=== PATIENT | female | born 1945 | race Caucasian/White ===

== ENCOUNTER 2016-07-25 13:05 | Observation (INO) | payer MEDICARE ==
[~2016-07-25] VITALS: Ht 154.9 cm; Wt 85.0 kg
[2016-07-25] VITALS (7 sets, daily range): BP systolic 126–181; BP diastolic 63–101; PULSE 64–90; RESP 16–18; TEMP 98–101.6; O2SAT 94–98
[~2016-07-25 13:05] MED LIST: CIPR500T4 PO; DICY1TAB26 PO; HYDR-3533 PO; LISI-587 PO; METR-1 PO
--- NOTE | 2016-07-25 13:12 | PD ---
Physical Exam Date Seen by Provider: July 25, 2016 Time Seen by Provider: 13:10 Narrative 71 yo female that presents to the ED for evaluation of abdominal cramping, nausea and vomiting after eating breakfast today. Vomited x 4. No diarrhea. No fevers. But complains of chills and sweats. No chest pain. No pain at this time. Ate some toast. Vitals sign stable. Patient awaiting bed placement. Data Data Last Documented VS Vital Signs Date Time Temp Pulse Resp B/P Pulse Ox O2 Delivery O2 Flow Rate FiO2 07/25/16 13:09 101.6 87 16 181/101 97 MDM Medical Record Reviewed: Yes Supervised Visit with SYD: No Dane Shukla July 25, 2016 13:11
[2016-07-25 14:03] LABS: AUTOMATED NEUTROPHIL # 7.2 TH/MM3 (1.8-7.7); BASOPHIL % 0.4 % (0.0-2.0); EOSINOPHIL % 0.1 % (0.0-4.0); HEMATOCRIT 41.4 % (35.0-46.0); HEMO FLAGS DIFF FINAL; LYMPH % 6.6 % (9.0-44.0); LYMPHOCYTE # 0.5 TH/MM3 (1.0-4.8); MEAN CELL VOLUME 84.4 FL (80.0-100.0); MEAN CORPUSCULAR HEMOGLOBIN 28.7 PG (27.0-34.0); MONO % 2.5 % (0.0-8.0); NEUT % 90.4 % (16.0-70.0); PLATELET COUNT 257 TH/MM3 (150-450); WHITE BLOOD COUNT 7.9 TH/MM3 (4.0-11.0)
[2016-07-25 14:06] LABS: BACTERIA, URINE RARE /hpf; BLOOD, URINE LARGE (NEG); COMMENT (UR) CULT NOT INDICATED; CULTURE IF INDICATED CULT NOT INDICATED; GLUCOSE,URINE NEG (NEG); KETONE, URINE NEG (NEG); NITRITE,URINE NEG (NEG); SQUAMOUS EPITHELIAL CELL URINE <1 /hpf (0-5); URINE COLOR LIGHT-YELLOW (YELLW/STRAW)
[2016-07-25 14:26] LABS: ALT (GPT) 43 U/L (10-53); ANION GAP 9 MEQ/L (5-15); AST (GOT) 52 U/L (15-37); BICARBONATE 26.7 MEQ/L (21.0-32.0); BLOOD UREA NITROGEN 11 MG/DL (7-18); CHLORIDE 104 MEQ/L (98-107); GLOMERULAR FILTRATION RATE 52 ML/MIN (>89); POTASSIUM 3.4 MEQ/L (3.5-5.1); SODIUM (NA) 140 MEQ/L (136-145)
[2016-07-25 14:31] LABS: ALKALINE PHOSPHATASE 67 U/L (45-117); TOTAL BILIRUBIN ADULT 0.4 MG/DL (0.2-1.0)
[2016-07-25] MEDS ORDERED: SODIUM CHLOR 0.9% 1000 ML INJ 1,000 ML IV SCH (14:54)
--- NOTE | 2016-07-25 14:59 | PD ---
HPI Chief Complaint: GI Complaint Time Seen by Provider: 14:35 Travel History International Travel<30 days: No Contact w/Intl Traveler<30days: No Traveled to known affect area: No History of Present Illness HPI Patient comes in for evaluation of nausea, vomiting, and diarrhea that occurred shortly after eating breakfast this morning. Patient states she had eggs and toast approximately an hour later she began feeling nauseous and had 4 episodes of vomiting that was nonbilious and nonbloody along with one episode of loose stool that was nonbloody. Patient denies any pain currently. States that after she vomited she felt much better. Patient states she did try to drink cranberry juice with lemon which she also vomited. Patient denies any chest pain, shortness of breath, fever, back pain, abdominal pain, or loss or change in bladder. Patient reports her history is hypertension, gout, and renal stones. States that she has had a cholecystectomy. PFSH Past Medical History Cardiovascular Problems: Yes (HTN) Cerebrovascular Accident: No Diminished Hearing: No Hypertension: Yes Kidney Stones: Yes Myocardial Infarction: No Menopausal: Yes Past Surgical History Section: Yes Cholecystectomy: Yes Gynecologic Surgery: Yes ( x3) Other Surgery: Yes Social History Alcohol Use: No Tobacco Use: No Substance Use: No Allergies-Medications (Allergen,Severity, Reaction): Coded Allergies: Bee Sting (Verified Allergy, Severe, 07/25/16) Reported Meds & Prescriptions Reported Meds & Active Scripts Active Review of Systems Except as stated in HPI: all other systems reviewed are Neg Physical Exam Narrative GENERAL: Well-developed, overly nourished, in no acute distress, and non-ill appearing. SKIN: Focused skin assessment warm and dry. HEAD: Atraumatic. Normocephalic. EYES: Pupils equal and round. EOMI. No scleral icterus. No injection or drainage. ENT: No nasal bleeding or discharge. Mucous membranes pink and moist. NECK: Trachea midline. Supple. No nuclear rigidity. CARDIOVASCULAR: Regular rate and rhythm. No murmur appreciated. RESPIRATORY: No accessory muscle use. No respiratory distress. Clear to auscultation. Breath sounds equal bilaterally. GASTROINTESTINAL: Abdomen soft, non-tender, nondistended. Hepatic and splenic margins not palpable. Normal bowel sounds 4. No pulsatile mass. MUSCULOSKELETAL: No obvious deformities. No clubbing. No cyanosis. No edema. Full range of motion. NEUROLOGICAL: Awake and alert. No obvious cranial nerve deficits. Motor grossly within normal limits. Normal speech. PSYCHIATRIC: Appropriate mood and affect; insight and judgment normal. Data Data Last Documented VS Vital Signs Date Time Temp Pulse Resp B/P Pulse Ox O2 Delivery O2 Flow Rate FiO2 07/25/16 14:59 95 Room Air 07/25/16 14:54 99.5 64 16 160/76 Orders Complete Blood Count With Diff (07/25/16 13:14) Comprehensive Metabolic Panel (07/25/16 13:14) Lipase (07/25/16 13:14) Urinalysis - C+S If Indicated (07/25/16 13:14) Electrocardiogram (07/25/16 13:14) Ct Abd/Pel W/O Iv Contrast (07/25/16 14:54) Iv Access Insert/Monitor (07/25/16 14:54) Ecg Monitoring (07/25/16 14:54) Oximetry (07/25/16 14:54) Ondansetron Inj (Zofran Inj) (07/25/16 15:00) Sodium Chlor 0.9% 1000 Ml Inj (Ns 1000 M (07/25/16 14:54) Sodium Chloride 0.9% Flush (Ns Flush) (07/25/16 15:00) Chest, Single Ap (07/25/16 14:54) Admit Order (Ed Use Only) (07/25/16 16:34) Labs Laboratory Tests Test 07/25/16 07/25/16 13:40 13:45 White Blood Count 7.9 TH/MM3 Red Blood Count 4.90 MIL/MM3 Hemoglobin 14.1 GM/DL Hematocrit 41.4 % Mean Corpuscular Volume 84.4 FL Mean Corpuscular Hemoglobin 28.7 PG Mean Corpuscular Hemoglobin 34.0 % Concent Red Cell Distribution Width 13.0 % Platelet Count 257 TH/MM3 Mean Platelet Volume 6.9 FL Neutrophils (%) (Auto) 90.4 % Lymphocytes (%) (Auto) 6.6 % Monocytes (%) (Auto) 2.5 % Eosinophils (%) (Auto) 0.1 % Basophils (%) (Auto) 0.4 % Neutrophils # (Auto) 7.2 TH/MM3 Lymphocytes # (Auto) 0.5 TH/MM3 Monocytes # (Auto) 0.2 TH/MM3 Eosinophils # (Auto) 0.0 TH/MM3 Basophils # (Auto) 0.0 TH/MM3 CBC Comment DIFF FINAL Differential Comment Sodium Level 140 MEQ/L Potassium Level 3.4 MEQ/L Chloride Level 104 MEQ/L Carbon Dioxide Level 26.7 MEQ/L Anion Gap 9 MEQ/L Blood Urea Nitrogen 11 MG/DL Creatinine 1.04 MG/DL Estimat Glomerular Filtration 52 ML/MIN Rate Random Glucose 117 MG/DL Calcium Level 8.8 MG/DL Total Bilirubin 0.4 MG/DL Aspartate Amino Transf 52 U/L (AST/SGOT) Alanine Aminotransferase 43 U/L (ALT/SGPT) Alkaline Phosphatase 67 U/L Total Protein 7.6 GM/DL Albumin 4.1 GM/DL Lipase 2198 U/L Urine Color LIGHT-YELLOW Urine Turbidity CLEAR Urine pH 5.0 Urine Specific [place] 1.009 Urine Protein NEG mg/dL Urine Glucose (UA) NEG mg/dL Urine Ketones NEG mg/dL Urine Occult Blood LARGE Urine Nitrite NEG Urine Bilirubin NEG Urine Urobilinogen LESS THAN 2.0 MG/DL Urine Leukocyte Esterase NEG Urine RBC 126 /hpf Urine WBC 1 /hpf Urine Squamous Epithelial <1 /hpf Cells Urine Bacteria RARE /hpf Microscopic Urinalysis Comment CULT NOT INDICATED MDM Medical Decision Making Medical Screen Exam Complete: Yes Emergency Medical Condition: Yes Interpretation(s) EKG reviewed by Dr. Greco shows sinus rhythm with ventricular rate of 92. No STEMI. Chest x-ray read by the radiologist shows: No acute disease. No significant change has occurred. CT abdomen and pelvis read by the radiologist shows: 1. There is diverticulosis of the descending and sigmoid colon. There is some questionable inflammatory changes adjacent to the mid sigmoid colon which may represent some mild diverticulitis. This needs to be correlated with patient's physical and clinical exam. 2. Stable left renal calculus. 3. Otherwise no other new or significant changes compared to the prior exam. Differential Diagnosis Gastritis, pancreatitis, diverticulitis, electrolyte abnormality, pneumonia, UTI , other Narrative Course Patient was seen examined. Initial laboratory and radiological studies were obtained and reviewed. Patient was given IV fluid and IV Zofran. Discussed patient with Dr. Greco, who saw and evaluated the patient men's having patient placed in observation for IV hydration secondary to the elevated lipase. Discuss all findings and plan care of patient was agreeable for admission. All questions were answered. Patient remained stable throughout ED course. Physician Communication Physician Communication [phone] Beltran, who is agreeable to admit the patient. Diagnosis Primary Impression: Pancreatitis, acute Qualified Code: K85.90 - Acute pancreatitis, unspecified complication status, unspecified pancreatitis type Admitting Information Admitting Physician Requests: Observation Condition: Stable Dustin Baird July 25, 2016 14:59
[2016-07-25] MEDS ORDERED: ONDANSETRON HCL 4 MG/2 ML VIAL IVP ONE (15:00)
[2016-07-25] MEDS ORDERED: SODIUM CHLORIDE 0.9% FLUSH 10 ML FLUSH IV FLUSH PRN (15:00)
--- NOTE | 2016-07-25 15:37 | RADRPT ---
EXAM DATE/TIME: 07/25/2016 15:02 [facility] COMPARISON: CHEST PA & LAT, December 03, 2013, 11:25. INDICATIONS : Vomiting, diarrhea MEDICAL HISTORY : gout SURGICAL HISTORY : Cholecystectomy. ENCOUNTER: Initial ACUITY: 1 day PAIN SCORE: 0/10 LOCATION: Bilateral chest FINDINGS: A single view of the chest demonstrates the lungs to be symmetrically aerated without evidence of mas s, infiltrate or effusion. The cardiomediastinal contours are unremarkable. Osseous structures are intact. CONCLUSION: No acute disease. No significant change has occurred. Cesar Fung MD on July 25, 2016 at 15:35 Board Certified Radiologist. This report was verified electronically.
--- NOTE | 2016-07-25 16:06 | RADRPT ---
EXAM DATE/TIME: 07/25/2016 15:46 [facility] COMPARISON: CT ABDOMEN & PELVIS W/O CONTRAST, December 02, 2015, 22:49. INDICATIONS : Nausea, vomiting and diarrhea with fever. ORAL CONTRAST: No oral contrast ingested. RADIATION DOSE: 11.82 CTDIvol (mGy) MEDICAL HISTORY : Hypertension. Renal calculi. SURGICAL HISTORY : Cholecystectomy. ENCOUNTER: Initial ACUITY: 1 day PAIN SCALE: 2/10 LOCATION: Bilateral abdomen TECHNIQUE: Volumetric scanning of the abdomen and pelvis was performed. Using automated exposure control and ad justment of the mA and/or kV according to patient size, radiation dose was kept as low as reasonably achievable to obtain optimal diagnostic quality images. The lack of IV contrast limits the diagnosis for certain organ pathology. FINDINGS: LOWER LUNGS: The visualized lower lungs are clear. LIVER: Homogeneous density without lesion. There is no dilation of the biliary tree. No gallbladder, surgi shmuel removed.. SPLEEN: Normal size without lesion. PANCREAS: Within normal limits. KIDNEYS: Stable 1.1 cm x 1.7 cm left renal calculus. Unchanged in position compared to the prior study. Tiny 2 mm stone upper pole right kidney. No right-sided hydronephrosis. There is prominence of the left col lecting system which is stable compared to the prior exam. ADRENAL GLANDS: Within normal limits. VASCULAR: There is no aortic aneurysm. BOWEL/MESENTERY: There is scattered diverticulosis of the descending and sigmoid colon. There is some questionable inf lammatory changes adjacent to the sigmoid colon. No free fluid or loculated fluid collections are see n. Otherwise the rest of the GI tract is unremarkable. ABDOMINAL WALL: Within normal limits. RETROPERITONEUM: There is no lymphadenopathy. BLADDER: No wall thickening or mass. REPRODUCTIVE: Within normal limits. INGUINAL: There is no lymphadenopathy or hernia. MUSCULOSKELETAL: Within normal limits for patient age. CONCLUSION: 1. There is diverticulosis of the descending and sigmoid colon. There is some questionable inflammato ry changes adjacent to the mid sigmoid colon which may represent some mild diverticulitis. This needs to be correlated with patient's physical and clinical exam. 2. Stable left renal calculus. 3. Otherwise no other new or significant changes compared to the prior exam. Cesar Fung MD on July 25, 2016 at 15:59 Board Certified Radiologist. This report was verified electronically.
--- NOTE | 2016-07-25 16:32 | HHI.HP ---
HPI Service [facility] Hospitalists Primary Care Physician Grazyna Marte MD Admission Diagnosis Nausea/vomiting Chief Complaint: Nausea/vomiting Travel History International Travel<30 Days: No Contact w/Intl Traveler <30 Da: No Traveled to Known Affected Are: No History of Present Illness Ms. Siegel is a pleasant 71 y/o female with HTN, nephrolithiasis and recent hx of gout of the left ankle. Pt presented to the ED at [facility] on 07/25/16 with acute onset of nausea/vomiting and diarrhea. She states that she had gone out to breakfast this morning with her friends and had eggs and toast and about 2 hours after eating she developed some subjective chills, and then she had nausea /vomiting and an episode of diarrhea. She states that she had 2-3 episodes of vomiting, nonbilious emesis, and some mid abdominal discomfort. This prompted her to come to the ED for further evaluation. Labs at admission noted an elevated Lipase level of 2198. Her LFTs were mostly WNL except for a mild elevation in AST of 52. She had a CT scan of the abd/pelvis which noted diverticulosis of the descending and sigmoid colon, with some questionable inflammatory changes adjacent to the mid sigmoid colon which may represent some mild diverticulitis, stable left renal calculus, otherwise no other new or significant changes compared to the prior exam. Pt reports that she had a recent episode of gout in her left ankle and was treated with Prednisone for a few days. She had been taking Lisinopril and HCTZ but when the gout attack occurred the HCTZ was stopped and the Lisinopril was continued. She states that she has been off the HCTZ for the last few weeks. Pt is overall feeling better since admission. She is being admitted overnight for observation and repeat labs in AM. Review of Systems Constitutional: COMPLAINS OF: Chills Respiratory: DENIES: Cough, Shortness of breath Cardiovascular: DENIES: Chest pain, Lower Extremity Edema Gastrointestinal: COMPLAINS OF: Abdominal pain, Diarrhea, Nausea, Vomiting Genitourinary: DENIES: Urinary frequency, Urinary incontinence Integumentary: DENIES: Rash Neurologic: DENIES: Headache Psychiatric: DENIES: Confusion Past Family Social History Past Medical History HTN Hyperlipidemia CKD, Stage 3 Diverticulosis Hx of nephrolithiasis Obesity Hx of cholecystitis s/p cholecystectomy in 2010 Hx of gout Past Surgical History Cesarian section Cholecystectomy Reported Medications Lisinopril 30mg PO DAILY Allergies: Coded Allergies: Bee Sting (Verified Allergy, Severe, 07/25/16) Family History Noncontributory Social History Rare alcohol use Denies any tobacco or illicit drug use Pt is a retired [employer] Physical Exam Vital Signs Vital Signs Date Time Temp Pulse Resp B/P Pulse Ox O2 Delivery O2 Flow Rate FiO2 07/25/16 14:59 95 Room Air 07/25/16 14:54 99.5 64 16 160/76 95 07/25/16 13:09 101.6 87 16 181/101 97 Physical Exam GENERAL: This is a well-nourished, well-developed patient, in no apparent distress. HEENT: Atraumatic. Normocephalic. No temporal or scalp tenderness. No scleral icterus. Airway patent. NECK: Trachea midline, supple, nontender. CARDIO: Regular. RESP: CTA bilaterally. No wheezes, rales, or rhonchi. ABD: +BS, soft, non-tender, nondistended. EXT: Extremities without clubbing, cyanosis, or edema. NEURO: Awake and alert. Motor and sensory grossly within normal limits. Normal speech. Laboratory Laboratory Tests Test 07/25/16 07/25/16 13:40 13:45 White Blood Count 7.9 Red Blood Count 4.90 Hemoglobin 14.1 Hematocrit 41.4 Mean Corpuscular Volume 84.4 Mean Corpuscular Hemoglobin 28.7 Mean Corpuscular Hemoglobin 34.0 Concent Red Cell Distribution Width 13.0 Platelet Count 257 Mean Platelet Volume 6.9 Neutrophils (%) (Auto) 90.4 Lymphocytes (%) (Auto) 6.6 Monocytes (%) (Auto) 2.5 Eosinophils (%) (Auto) 0.1 Basophils (%) (Auto) 0.4 Neutrophils # (Auto) 7.2 Lymphocytes # (Auto) 0.5 Monocytes # (Auto) 0.2 Eosinophils # (Auto) 0.0 Basophils # (Auto) 0.0 CBC Comment DIFF FINAL Differential Comment Sodium Level 140 Potassium Level 3.4 Chloride Level 104 Carbon Dioxide Level 26.7 Anion Gap 9 Blood Urea Nitrogen 11 Creatinine 1.04 Estimat Glomerular Filtration 52 Rate Random Glucose 117 Calcium Level 8.8 Total Bilirubin 0.4 Aspartate Amino Transf 52 (AST/SGOT) Alanine Aminotransferase 43 (ALT/SGPT) Alkaline Phosphatase 67 Total Protein 7.6 Albumin 4.1 Lipase 2198 Urine Color LIGHT-YELLOW Urine Turbidity CLEAR Urine pH 5.0 Urine Specific [place] 1.009 Urine Protein NEG Urine Glucose (UA) NEG Urine Ketones NEG Urine Occult Blood LARGE Urine Nitrite NEG Urine Bilirubin NEG Urine Urobilinogen LESS THAN 2.0 Urine Leukocyte Esterase NEG Urine RBC 126 Urine WBC 1 Urine Squamous Epithelial <1 Cells Urine Bacteria RARE Microscopic Urinalysis Comment CULT NOT INDICATED Result Diagram: 07/25/16 1340 07/25/16 1340 Imaging Last Impressions Chest X-Ray 07/25/161453 Signed Impressions: Service Date/Time: Monday, July 25, 2016 15:02 - CONCLUSION: No acute disease. No significant change has occurred. Cesar Fung MD Abdomen/Pelvis CT 07/25/161453 Signed Impressions: Service Date/Time: Monday, July 25, 2016 15:46 - CONCLUSION: 1. There is diverticulosis of the descending and sigmoid colon. There is some questionable inflammatory changes adjacent to the mid sigmoid colon which may represent some mild diverticulitis. This needs to be correlated with patient's physical and clinical exam. 2. Stable left renal calculus. 3. Otherwise no other new or significant changes compared to the prior exam. Cesar Fung MD Septic Shock Reassessment Heart: Regular rate and rhythm Lungs: Clear Skin: Warm Peripheral Pulses: Bounding Right Radial Bounding Left Radial Bounding Right Popliteal Bounding Left Popliteal Bounding Right Dorsalis Pedis Bounding Left Dorsalis Pedis Bounding Right Posterior Tibial Bounding Left Posterior Tibial Assessment and Plan Problem List: (1) Nausea vomiting and diarrhea Status: Acute Plan: - Pt is a 71 y/o female with HTN who was admitted with acute onset of N/V and an episode of diarrhea that began this morning about 2 hours after eating breakfast. - She had 2-3 episodes of nonbilious vomiting and one episode of diarrhea. - Pt had a normal WBC count - She had a noted elevated lipase at admission, significance unclear. - CT scan abd/pelvis did not report evidence of pancreatitis or biliary ductal dilation but did note some diverticulosis of the descending and sigmoid colon with some questionable inflammatory changes adjacent to the mid sigmoid colon which may represent some mild diverticulitis but pt has not had any significant abdominal pain and her examination is not consistent with diverticulitis. - Pts symptoms may be related to either pancreatitis (secondary to a passed gallstone vs. hypertriglyceridemia vs. viral gastroenteritis vs. other) vs. a gastroenteritis vs. other. - Currently pt has not had any further N/V/D - Give IVF tonight - Clear liquid diet - Repeat CBC, CMP, Lipase and Lipid panel in AM - Antiemetics PRN - Supportive care - DVT prophylaxis with SCDs (2) Elevated lipase Status: Acute Plan: - See above. (3) HTN (hypertension) Status: Chronic Plan: - Cont. home meds - Clonidine PRN Assessment and Plan Patient examined. Assessment and plan formulated with Carmita Ward PA-C. I agree with the above. possible GE after eating in restaurant with acute pancreatitis .sx's much improved. no apparent diverticulitis clinically. ivf and advance diet overnight. if stable d/c tomorrow. Carmita Ward July 25, 2016 16:32 Bin Chiu MD July 25, 2016 20:18
[2016-07-25] MEDS ORDERED: ONDANSETRON HCL 4 MG/2 ML VIAL IV PRN (17:00)
[2016-07-25] MEDS ORDERED: ACETAMINOPHEN 325 MG TAB PO PRN (17:00)
[2016-07-25] MEDS ORDERED: LISI30TA4 PO (17:19)
[2016-07-25] MEDS ORDERED: cloNIDine HCL 0.1 MG TAB PO PRN (17:30)
[2016-07-25] MEDS: NS + KCL 20 MEQ INJ 1,000 ML IV SCH (20:00)
[2016-07-26 00:16] VITALS: BP 136/64; PULSE 92; RESP 18; TEMP 96.2; O2SAT 96
[2016-07-26] MEDS: NS + KCL 20 MEQ INJ 1,000 ML IV SCH (04:16)
[2016-07-26 04:43] VITALS: BP 138/72; PULSE 70; RESP 18; TEMP 98; O2SAT 93
[2016-07-26 05:23] LABS: AUTOMATED NEUTROPHIL # 6.4 TH/MM3 (1.8-7.7); BASOPHIL % 0.5 % (0.0-2.0); EOSINOPHIL % 0.1 % (0.0-4.0); HEMATOCRIT 36.9 % (35.0-46.0); HEMO FLAGS DIFF FINAL; LYMPH % 13.2 % (9.0-44.0); LYMPHOCYTE # 1.1 TH/MM3 (1.0-4.8); MEAN CORPUSCULAR HEMOGLOBIN 28.2 PG (27.0-34.0); MEAN CORPUSCULAR HGB CONC 33.2 % (32.0-36.0); MONO % 5.9 % (0.0-8.0); NEUT % 80.3 % (16.0-70.0); PLATELET COUNT 212 TH/MM3 (150-450); RED BLOOD COUNT 4.34 MIL/MM3 (4.00-5.30)
[2016-07-26 06:04] LABS: ALKALINE PHOSPHATASE 47 U/L (45-117); ALT (GPT) 39 U/L (10-53); ANION GAP 7 MEQ/L (5-15); AST (GOT) 35 U/L (15-37); BICARBONATE 27.9 MEQ/L (21.0-32.0); BLOOD UREA NITROGEN 8 MG/DL (7-18); CHLORIDE 108 MEQ/L (98-107); GLOMERULAR FILTRATION RATE 56 ML/MIN (>89); HDL CHOLESTEROL 44.4 MG/DL (40.0-60.0); LDL CHOLESTEROL 97 MG/DL (0-99); POTASSIUM 3.8 MEQ/L (3.5-5.1); SODIUM (NA) 143 MEQ/L (136-145); TOTAL BILIRUBIN ADULT 0.8 MG/DL (0.2-1.0)
[2016-07-26 08:00] VITALS: BP 139/58; PULSE 73; RESP 20; TEMP 99.5; O2SAT 92
--- NOTE | 2016-07-26 08:52 | HHI.PR ---
Subjective Remarks Pt reports that she feels 100% better today. No nausea/vomiting, abd pain or diarrhea. She tolerating liquids No fevers Objective Vitals Vital Signs Date Time Temp Pulse Resp B/P Pulse Ox O2 Delivery O2 Flow Rate FiO2 07/26/16 08:00 99.5 73 20 139/58 92 07/26/16 04:43 98.0 70 18 138/72 93 07/26/16 00:16 96.2 92 18 136/64 96 07/25/16 20:51 98.0 80 18 128/70 98 07/25/16 19:52 98.0 68 18 126/65 94 07/25/16 18:04 99.3 90 18 130/70 95 07/25/16 16:39 83 16 141/63 96 07/25/16 14:59 95 Room Air 07/25/16 14:54 99.5 64 16 160/76 95 07/25/16 13:09 101.6 87 16 181/101 97 07/25/16 07/25/16 07/26/16 15:00 23:00 07:00 Intake Total 240 ml 360 ml Output Total 1200 ml Balance 240 ml -840 ml Intake Oral 240 ml 360 ml Output Urine Total 1200 ml # Voids 1 3 Result Diagram: 07/26/16 0445 07/26/16 0445 Other Results Laboratory Tests Test 07/25/16 07/25/16 07/26/16 13:40 13:45 04:45 White Blood Count 7.9 TH/MM3 8.0 TH/MM3 Red Blood Count 4.90 MIL/MM3 4.34 MIL/MM3 Hemoglobin 14.1 GM/DL 12.2 GM/DL Hematocrit 41.4 % 36.9 % Mean Corpuscular Volume 84.4 FL 85.0 FL Mean Corpuscular Hemoglobin 28.7 PG 28.2 PG Mean Corpuscular Hemoglobin 34.0 % 33.2 % Concent Red Cell Distribution Width 13.0 % 13.0 % Platelet Count 257 TH/MM3 212 TH/MM3 Mean Platelet Volume 6.9 FL 6.7 FL Neutrophils (%) (Auto) 90.4 % 80.3 % Lymphocytes (%) (Auto) 6.6 % 13.2 % Monocytes (%) (Auto) 2.5 % 5.9 % Eosinophils (%) (Auto) 0.1 % 0.1 % Basophils (%) (Auto) 0.4 % 0.5 % Neutrophils # (Auto) 7.2 TH/MM3 6.4 TH/MM3 Lymphocytes # (Auto) 0.5 TH/MM3 1.1 TH/MM3 Monocytes # (Auto) 0.2 TH/MM3 0.5 TH/MM3 Eosinophils # (Auto) 0.0 TH/MM3 0.0 TH/MM3 Basophils # (Auto) 0.0 TH/MM3 0.0 TH/MM3 CBC Comment DIFF FINAL DIFF FINAL Differential Comment Sodium Level 140 MEQ/L 143 MEQ/L Potassium Level 3.4 MEQ/L 3.8 MEQ/L Chloride Level 104 MEQ/L 108 MEQ/L Carbon Dioxide Level 26.7 MEQ/L 27.9 MEQ/L Anion Gap 9 MEQ/L 7 MEQ/L Blood Urea Nitrogen 11 MG/DL 8 MG/DL Creatinine 1.04 MG/DL 0.97 MG/DL Estimat Glomerular Filtration 52 ML/MIN 56 ML/MIN Rate Random Glucose 117 MG/DL 90 MG/DL Calcium Level 8.8 MG/DL 7.9 MG/DL Total Bilirubin 0.4 MG/DL 0.8 MG/DL Aspartate Amino Transf 52 U/L 35 U/L (AST/SGOT) Alanine Aminotransferase 43 U/L 39 U/L (ALT/SGPT) Alkaline Phosphatase 67 U/L 47 U/L Total Protein 7.6 GM/DL 6.1 GM/DL Albumin 4.1 GM/DL 3.1 GM/DL Lipase 2198 U/L 334 U/L Urine Color LIGHT-YELLOW Urine Turbidity CLEAR Urine pH 5.0 Urine Specific [place] 1.009 Urine Protein NEG mg/dL Urine Glucose (UA) NEG mg/dL Urine Ketones NEG mg/dL Urine Occult Blood LARGE Urine Nitrite NEG Urine Bilirubin NEG Urine Urobilinogen LESS THAN 2.0 MG/DL Urine Leukocyte Esterase NEG Urine RBC 126 /hpf Urine WBC 1 /hpf Urine Squamous Epithelial <1 /hpf Cells Urine Bacteria RARE /hpf Microscopic Urinalysis Comment CULT NOT INDICATED Triglycerides Level 112 MG/DL Cholesterol Level 164 MG/DL LDL Cholesterol 97 MG/DL HDL Cholesterol 44.4 MG/DL Cholesterol/HDL Ratio 3.69 RATIO Imaging Last Impressions Chest X-Ray 07/25/16 1454 Signed Impressions: Service Date/Time: Monday, July 25, 2016 15:02 - CONCLUSION: No acute disease. No significant change has occurred. Cesar J. Siragusa, MD Abdomen/Pelvis CT 07/25/16 1454 Signed Impressions: Service Date/Time: Monday, July 25, 2016 15:46 - CONCLUSION: 1. There is diverticulosis of the descending and sigmoid colon. There is some questionable inflammatory changes adjacent to the mid sigmoid colon which may represent some mild diverticulitis. This needs to be correlated with patient's physical and clinical exam. 2. Stable left renal calculus. 3. Otherwise no other new or significant changes compared to the prior exam. Cesar Fung MD Objective Remarks General: NAD, AAOx3 Chest: CTA Cardiac: Regular Abd: +BS, soft ND/NT Ext: No edema A/P Problem List: (1) Nausea vomiting and diarrhea Status: Acute Plan: - Pt is a 71 y/o female with HTN who was admitted with acute onset of N/V and an episode of diarrhea that began yesterday morning about 2 hours after eating breakfast. - She had 2-3 episodes of nonbilious vomiting and one episode of diarrhea. - Pt had a normal WBC count - She had a noted elevated lipase at admission, significance unclear. - CT scan abd/pelvis did not report evidence of pancreatitis or biliary ductal dilation but did note some diverticulosis of the descending and sigmoid colon with some questionable inflammatory changes adjacent to the mid sigmoid colon which may represent some mild diverticulitis but pt has not had any significant abdominal pain and her examination is not consistent with diverticulitis. - Pts symptoms may be related to either pancreatitis (secondary to a passed gallstone vs. hypertriglyceridemia vs. viral gastroenteritis vs. other) vs. a gastroenteritis vs. nephrolithiasis vs. other. - Repeat labs today with normalized lipase and all LFTs are WNL. - Of note the pt had numerous RBCs in her urine and its not clear if her symptoms were similar to when she has had kidney stones in the past but this will need followup with her PCP. - Pt has not had any further N/V/D - She has tolerated liquid diet - Advance to regular diet today and if tolerating will discharge home this afternoon - Antiemetics PRN - Pt will need to followup with her PCP, Dr. Marte, in 1 week. (2) Elevated lipase Status: Acute Plan: - See above. (3) HTN (hypertension) Status: Chronic Plan: - Cont. home meds - Clonidine PRN Assessment and Plan Patient examined. Assessment and plan formulated with Carmita Ward PA-C. I agree with the above. GE after eating in restaurant. acute pancreatitis probably infectious but resolved. probably passed kidney stone. some hematuria. f/u pcp to recheck urine. no clinical finding of diverticulitis on exam. f/u. Carmita Ward July 26, 2016 08:51 Bin Chiu MD July 26, 2016 20:35
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
[2016-07-26] MEDS ORDERED: LISINOPRIL 10 MG TAB PO SCH (09:00)
--- NOTE | 2016-07-26 09:41 | EKG ---
Date Performed: 07/25/2016 Time Performed: 12:06:05 PTAGE: 71 years EKG: Sinus rhythm POSSIBLE LEFT ATRIAL ENLARGEMENT NONSPECIFIC T-WAVE ABNORMALITY BORDERLINE ECG INTERPRETATION BASED ON A DEFAULT AGE OF 39 YEARS NO PREVIOUS TRACING DOCTOR: Jose Alejo Interpretating Date/Time 07/26/2016 09:39:14
== END 2016-07-26 11:50 | disposition home or self-care (01) ==
LOC: NEPE 13:05 → NEDA 16:35 → NEPFCDU 18:03
PROVIDERS: ADMIT Hospitalist; ATTEND Hospitalist
DX: K52.9 Noninfective gastroenteritis and colitis, unspecified (principal); K85.90 Acute pancreatitis without necrosis or infection, unspecified; I12.9 Hypertensive chronic kidney disease with stage 1 through stage 4 chronic kidney disease, or unspecified chronic kidney disease; N18.3 Chronic kidney disease, stage 3 (moderate); M10.9 Gout, unspecified; E78.5 Hyperlipidemia, unspecified; Z91.030 Bee allergy status; E66.9 Obesity, unspecified; Z68.35 Body mass index [BMI] 35.0-35.9, adult; Z90.49 Acquired absence of other specified parts of digestive tract
CPT/HCPCS: 71010; 74176; 80053; 80061; 81001; 83690; 85025; 93005; 96361; 96374; 99285; G0378; J2405; J3480; J7030

== ENCOUNTER 2016-11-07 09:54 | Emergency (ER) | payer MEDICARE ==
[~2016-11-07] VITALS: Ht 154.9 cm; Wt 83.0 kg
[~2016-11-07 09:54] MED LIST changes: -CIPR500T4 PO; -DICY1TAB26 PO; -HYDR-3533 PO; -LISI-587 PO; +LISI30TA4 PO; -METR-1 PO
[2016-11-07 09:56] VITALS: BP 192/140; PULSE 70; RESP 17; TEMP 98.4; O2SAT 99
[2016-11-07] MEDS ORDERED: LISINOPRIL 20 MG TAB PO ONE (11:15)
[2016-11-07] MEDS ORDERED: amLODIPine BESYLATE 5 MG TAB PO ONE (11:15)
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
[2016-11-07 11:48] LABS: ALT (GPT) 27 U/L (10-53); ANION GAP 6 MEQ/L (5-15); AST (GOT) 24 U/L (15-37); BLOOD UREA NITROGEN 13 MG/DL (7-18); CHLORIDE 105 MEQ/L (98-107); GLOMERULAR FILTRATION RATE 64 ML/MIN (>89); POTASSIUM 3.6 MEQ/L (3.5-5.1); SODIUM (NA) 138 MEQ/L (136-145)
[2016-11-07 11:50] LABS: ALKALINE PHOSPHATASE 70 U/L (45-117); TOTAL BILIRUBIN ADULT 0.5 MG/DL (0.2-1.0)
[2016-11-07] MEDS ORDERED: AMLO5TAB2 PO (11:56)
[2016-11-07 12:05] VITALS: BP 168/89
== END 2016-11-07 12:06 | disposition home or self-care (01) ==
LOC: NEPD 09:54
DX: I10 Essential (primary) hypertension (principal); M10.9 Gout, unspecified; Z87.442 Personal history of urinary calculi
CPT/HCPCS: 80053; 99283